=== PATIENT | male | born 1955 | race Caucasian/White ===

== ENCOUNTER 2019-11-28 18:27 | Emergency (ER) | payer OTHER, SELFPAY ==
[2019-11-28 18:36] VITALS: BP 152/90; PULSE 76; RESP 16; TEMP 36.5; O2SAT 99
--- NOTE | 2019-11-28 19:00 | DI.CT_ITS ---
EXAM: CT HEAD WO CLINICAL HISTORY: Head injury, anisocoria. TECHNIQUE: Imaging Protocol: Axial computed tomography images with coronal and sagittal reformatted images were created and reviewed COMPARISON: No exams were available for comparison FINDINGS: Ventricles and Extra axial spaces: Normal in size and morphology for the patient's age. Hemorrhage: None. Cerebral parenchyma: Normal. Midline shift: None. Brainstem/Cerebellum: Normal. Calvarium: Normal. Visualized Paranasal sinuses/Mastoids: Mild chronic right mastoiditis. Otherwise visualized paranasa l sinuses are clear. Soft Tissues: Left periorbital soft tissue swelling. No radiopaque foreign bodies. IMPRESSION: 1. No acute intracranial process. 2. Left periorbital soft tissue swelling. No radiopaque foreign body. RADIATION DOSE DELIVERED: Total DLP DATA REPOSITORY: All CT scans at this facility are submitted to the National Radiology Data Registry (NRDR) Dose Index Registry (DIR) with the [employer] ([employer]). RADIATION OPTIMIZATION: All CT scans at this facility use at least one of these dose optimization te chniques: automated exposure control; mA and/or kV adjustment per patient size (includes targeted exa ms where dose is matched to clinical indication); or iterative reconstruction.
--- NOTE | 2019-11-28 19:41 | DI.VRAD_ITS ---
PROCEDURE INFORMATION: Exam: CT Head Without Contrast Exam date and time: 11/28/2019 7:24 PM Age: 64 years old Clinical indication: Injury or trauma; Injury history: Head butted by a horse, laceration over L eye; Initial encounter; Consciousness not specified; Without residual foreign body; Left; Injury date: 11/28/19 TECHNIQUE: Imaging protocol: Computed tomography of the head without contrast. Radiation optimization: All CT scans at this facility use at least one of these dose optimization techniques: automated exposure control; mA and/or kV adjustment per patient size (includes targeted exams where dose is matched to clinical indication); or iterative reconstruction. COMPARISON: No relevant prior studies available. FINDINGS: Brain: No extra-axial fluid collections. No evidence of acute intracranial hemorrhage. Leon-white differentiation is well maintained. No evidence of acute or subacute intracranial ischemia/infarct. No intracranial mass lesions. No midline shift or herniation. Ventricles: Ventricles normal. Bones/joints: The calvarium and visualized facial bones are intact. Sinuses: Visualized paranasal sinuses are clear. Mastoid air cells: Left mastoid air cells are clear. Partial opacification and mild sclerosis involving the right inferior mastoid air cell distributions suggesting mild chronic mastoid inflammatory disease. No coalescence. Orbits: See Soft tissues finding. Vasculature: Mild calcific atherosclerosis is identified in the visualized proximal intracranial arterial segments. No asymmetric vascular hyperdensities suggestive of thrombosis are identified. Soft tissues: Left periorbital preseptal soft tissue swelling/laceration, with no underlying fracture or foreign body. No post septal intraorbital soft tissue swelling or hematoma was evident. Orbital contents are grossly normal. Other findings: The IACs are grossly normal. The sella is grossly normal. IMPRESSION: 1. No acute intracranial process. 2. Left periorbital preseptal soft tissue swelling/laceration with no underlying fracture or foreign body. Visualized orbital contents are normal. 3. Partial opacification of the inferior right mastoid air cell distribution with mild local sclerosis suggesting chronic mastoid inflammatory disease. Dictated and Authenticated by: Jin Alonso MD. Ordering:KEITH Gardiner MD
--- NOTE | 2019-11-28 20:04 | W.ED.GENAD ---
Discharge Plan Disposition Patient Disposition: HOME Condition: Stable Discharge Details Chief Complaint: HeadInjury Clinical Impression: Anisocoria, Facial laceration Primary Care Provider: Mike Coronel ED Provider: Abdifatah Viveros Home Meds and New Rx's Prescriptions: No Action omeprazole 20 mg Tablet,Delayed Release (Dr/Ec) 20 mg PO DAILY RF: 0 Discharge Instructions Instructions: Facial Laceration (ED) Additional Instructions: Keep the wound clean and dry, apply antibiotic ointment daily. Avoid direct sunlight-sunburn. Sutures need to be removed in the next 5-7 days. Please watch for new or worsening symptoms and return to the ER for any concerns. 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 If this is not your baseline then they may want to evaluate you sooner. Medical Decision Making Patient presents after being head butted by a horse, sustaining a laceration. Tetanus up-to-date. Patient is unaware of any baseline anisocoria. He is not anticoagulated. Vision bilaterally is 20-30. Given his pupil irregularity will obtain head CT although low suspicion for acute intracranial process. 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 Laceration will need to be repaired CT head without contrast read by virtual radiology as no acute intracranial process. Left periorbital preseptal soft tissue swelling-laceration with no underlying fracture or foreign body. Visualized orbital contents are normal. Partial opacification of the inferior right mastoid air cell distribution with mild local sclerosis suggesting mild mastoid inflammatory disease. HPI General Mode of arrival: ambulatory. Date/Time Provider Initiated Documentation: 11/28/19 18:50. Limitations to Documentation: no limitations. Information obtained by: patient. HPI Narrative: 64-year-old gentleman with a history of GERD reports that he was out feeding his horse and the horse head butted him in the left eye region. Reports that he was struck hard but did not lose consciousness. He reports localized mild pain at the site of the injury but denies global headache, neck pain, visual changes. Denies any other injury. Denies nausea, vomiting, numbness, tingling, weakness. Patient was able to determine that his last tetanus shot was last year. He has no additional questions or concerns at this time Related Data Home Medications Medication Instructions Recorded Confirmed omeprazole 20 mg PO DAILY 11/28/19 11/28/19 Allergies Allergy/AdvReac Type Severity Reaction Status Date / Time No Known Allergies Allergy Unverified 11/28/19 18:39 General Stated Complaint: HeadInjury LISA: 3 Review of Systems Constitutional Constitutional: Denies headache(s) and Denies weakness Eyes Eyes: Denies blurry vision, Denies change in vision and Denies eye pain ENT Ears, Nose, Mouth, and Throat: Denies headache(s) and Denies neck pain Gastrointestinal Gastrointestinal: Denies nausea and Denies vomiting Musculoskeletal Musculoskeletal: Denies back pain, Denies neck pain, Denies numbness and Denies tingling Neurologic Neurologic: Denies headache(s), Denies numbness, Denies tingling and Denies weakness [facility] Social History Smoking/Tobacco Use Status: Current-Occasional Tobacco Type: cigars Alcohol Intake: current Alcohol Intake frequency: 0-2 drinks per day Alcohol type: hard liquor Drug use: Never Substance use type: does not use Do you feel safe at home: Yes Do you feel safe in your relationship?: Yes Exam Const General: cooperative, healthy appearing, comfortable and no acute distress Orientation: alert, awake and oriented x3 HENMT Head: normal to inspection, no palpable skull fracture, normocephalic and atraumatic Ears: external ears normal, TM's normal bilaterally and EAC's normal General nose exam: external nose normal Mouth: moist mucous membranes Teeth and gingiva: dentition normal Throat: posterior oropharynx normal Eyes Alignment and Position: alignment normal Periorbital: periorbital findings abnormal left periorbital swelling, periorbital tenderness and periorbital ecchymosis Eyelids: eyelid abnormality left upper eyelid laceration not involving eyelid margin (Upper lid irregular laceration 2 cm) Conjunctivae: conjunctival abnormality left conjunctival injection Sclera: sclerae normal Pupils: anisocoria left pupil size greater than right EOM: EOM intact bilaterally Direct ophthalmoscopy: normal light reflex Neck Neck: normal visual inspection, full ROM, trachea midline, supple and nontender Resp Effort & Inspection: normal respiratory effort and able to speak in complete sentences Cardio Rate: regular rate Rhythm: regular rhythm Skin General skin exam: no rashes or lesions noted Neuro General: patient alert, patient awake, moves all extremities and no focal motor deficits Sensory Exam: no sensory deficits noted Extrem General: normal to inspection, full ROM, capillary refill normal, no pedal edema and no calf tenderness Psych Appearance: grossly normal Mental Status: mental status grossly normal Course Vital Signs Vital signs: Vital Signs Temperature 36.5 C 11/28/19 18:36 Pulse 76 11/28/19 18:36 Respiratory Rate 16 11/28/19 18:36 Blood Pressure 152/90 H 11/28/19 18:36 Pulse Oximetry 99 11/28/19 18:36 Temperature 36.5 C 11/28/19 18:36 Temperature Source Skin 11/28/19 18:36 Pulse 76 11/28/19 18:36 Respiratory Rate 16 11/28/19 18:36 Respiratory Effort Non-Labored 11/28/19 18:46 Respiratory Depth Normal 11/28/19 18:46 Respiratory Pattern Normal 11/28/19 18:46 Blood Pressure 152/90 H 11/28/19 18:36 Blood Pressure Position Sitting 11/28/19 18:36 Pulse Oximetry 99 11/28/19 18:36 Oxygen Delivery Method Room Air 11/28/19 18:36 Oxygen Flow Rate 0 11/28/19 18:36 Pain Level 3 11/28/19 18:36 Procedures Laceration Laceration 1: Site: face (Periorbital region, upper lid) Side (If applicable): left Size (cm): 2.5 Description: irregular Depth: simple, single layer Local Anesthetic: Lidocaine 1% Amount of anesthesia used (mL): 4 Pre-repair: wound explored, irrigated extensively and deep structures intact Skin layer closed with: nylon Size (cm): 6-0 Number of sutures: 5 Technique: simple, interrupted
[2019-11-28 20:06] VITALS: BP 135/79; PULSE 67; RESP 16; TEMP 36.8; O2SAT 99
== END 2019-11-28 20:10 | disposition home or self-care (01) ==
PROVIDERS: Emergency Provider Physician Assistant; PCP Internal Medicine
DX: S01.112A Laceration without foreign body of left eyelid and periocular area, initial encounter (principal); W55.12XA Struck by horse, initial encounter; H57.02 Anisocoria
CPT/HCPCS: 12011; 99284; 70450; 99282